=== PATIENT | female | born 1950 | race Caucasian/White ===

== ENCOUNTER 2018-08-03 05:48 | Outpatient (CLI) | payer BC ==
[~2018-08-03] VITALS: Ht 170.2 cm; Wt 81.6 kg
[~2018-08-03 05:48] MED LIST: HYDR25TA4 PO; IBUP-1773 PO; NFNEB10T PO; ROSU10TA PO
[2018-08-03] MEDS ORDERED: NEBI20TA2 PO (14:32)
[2018-08-03] MEDS ORDERED: ALLO100T PO (14:32)
[2018-08-03] MEDS ORDERED: AMLO5TAB4 PO (14:32)
== END 2018-08-03 14:36 | disposition home or self-care (01) ==
LOC: PREOP 05:48
PROVIDERS: ATTEND Obstetrics & Gynecology
DX: Z01.818 Encounter for other preprocedural examination (principal)

== ENCOUNTER 2018-08-06 07:41 | Day surgery (SDC) | payer MEDICARE, OTHER ==
[~2018-08-06] VITALS: Ht 170.2 cm; Wt 81.6 kg
[~2018-08-06 07:41] MED LIST changes: +ALLO100T PO; +AMLO5TAB4 PO; +NEBI20TA2 PO
[2018-08-06] MEDS ORDERED: BUPIVACAINE 0.25% 30 ML (SENSORCAINE) VIAL ONE (07:44)
[2018-08-06 07:50] VITALS: BP 167/103
[2018-08-06] MEDS ORDERED: LACTATED RINGERS 1,000 ML IV ONE (07:52)
[2018-08-06] MEDS ORDERED: fentaNYL INJECTION 100 MCG/2 ML AMP ONE (07:53)
[2018-08-06] MEDS ORDERED: MIDAZOLAM 2 MG/2 ML (VERSED) VIAL ONE (07:53)
[2018-08-06] MEDS ORDERED: SEVOFLURANE (ULTANE) 15 ML INHAL SOLN ONE ×3 (07:54→09:24)
[2018-08-06] MEDS ORDERED: ROCURONIUM 10 MG/ML 5 ML SYRINGE IV ONE (07:54)
[2018-08-06] MEDS ORDERED: proPOfol 200 MG/20 ML (DIPRIVAN) VIAL IV ONE (07:54)
[2018-08-06] MEDS ORDERED: ONDANSETRON 4 MG/2 ML (SDV) Z0FRAN ONE (07:54)
[2018-08-06] MEDS ORDERED: DEXAMETHASONE 10 MG/ML (DECADRON) 1 ML VIAL ONE (07:54)
[2018-08-06] MEDS ORDERED: LIDOCAINE PF 2% 5 ML (XYLOCAINE) VIAL ONE (07:54)
[2018-08-06] MEDS ORDERED: ceFAZolin INJECTION 1,000 MG in NS (IVPB) 50 ML IV ONE (08:00)
[2018-08-06] MEDS ORDERED: metroNIDAZOLE 500MG/100ML IVPB 100 ML IV ONE (08:00)
[2018-08-06] MEDS: LACTATED RINGERS 1,000 ML IV PRN ×3 (08:12→13:45)
[2018-08-06 08:20] LABS: BASOPHILS # (AUTO) 0.1 10^3/uL (0.0-0.1); BASOPHILS % (AUTO) 1 % (0-10); EOSINOPHILS # (AUTO) 0.1 10^3/uL (0.0-0.3); EOSINOPHILS % (AUTO) 1 % (0-10); HEMATOCRIT 48 % (35-52); HEMOGLOBIN 16.2 G/DL (11.5-16.0); LYMPHOCYTES # (AUTO) 2.4 X 10^3 (1.0-4.0); LYMPHOCYTES % (AUTO) 29 % (12-44); MEAN CORPUSCULAR HEMOGLOBIN 29 PG (25-34); MEAN CORPUSCULAR HGB CONC 34 G/DL (32-36); MEAN CORPUSCULAR VOLUME 86 FL (80-99); MEAN PLATELET VOLUME 12.6 FL (7.4-10.4); MONOCYTES % (AUTO) 12 % (0-12); NEUTROPHILS # (AUTO) 4.6 X 10^3 (1.8-7.8); NEUTROPHILS % (AUTO) 57 % (42-75); PLATELET COUNT 214 10^3/uL (130-400); RED CELL DISTRIBUTION WIDTH 14.1 % (10.0-14.5); WHITE BLOOD COUNT 8.1 10^3/uL (4.3-11.0)
[2018-08-06] MEDS ORDERED: LACTATED RINGERS 1,000 ML IV SCH (08:25)
--- NOTE | 2018-08-06 08:25 | Progress Note-Pre Operative ---
Pre-Operative Progress Note H&P Reviewed The H&P was reviewed, patient examined and no changes noted. Date Seen by Provider: Aug 06, 2018 Time Seen by Provider: 08:10 Date H&P Reviewed: Aug 06, 2018 Time H&P Reviewed: 08:00 Pre-Operative Diagnosis: POP, PMB, Fibroid uterus GLENN ROGER DO Aug 06, 2018 08:25
--- NOTE | 2018-08-06 08:27 | Discharge Inst-Women's Service ---
Discharge Inst-Women's Serv Depart Medication/Instructions New, Converted or Re-Newed RX: RX on Chart Consults/Follow Up Additional Follow Up: Yes Orders/Referrals Dr. Mart in 7-10 days and in 8 weeks Activity Activity: Activity as Tolerated Driving Instructions: No Driving for 1 Week NO SMOKING: NO SMOKING Nothing Inside Vagina: No Douching, No [place], No Tampons Diet Discharge Diet: No Restrictions Symptoms to Report to : Bleeding Excessive, Pain Increased, Fever Over 101 Degrees F, Vaginal Bleeding Increase, Questions/Concerns For Any Problems or Questions: Contact Your Physician Skin/Wound Care Infection Signs and Symptoms: Increased Redness, Foul Odor of Wound, Increased Drainage, Skin Itchy or Has a Rash, Increased Swelling, Temperature Above 101 F Operative Area Clean and Dry: Keep Incision Clean/Dry Stitches/All/Dermabond: Dermabond, Care of Stitches Bathing Instructions: GLENN Sher DO Aug 06, 2018 08:27
[2018-08-06] MEDS ORDERED: HYDR-34 PO (08:29)
[2018-08-06] MEDS ORDERED: IBUP-844 PO (08:29)
[2018-08-06] MEDS ORDERED: SIME80TA16 PO (08:29)
[2018-08-06] MEDS ORDERED: DOCU100C37 PO (08:29)
[2018-08-06] MEDS ORDERED: KETOROLAC 30 MG/ML VIAL IV PRN (08:30)
[2018-08-06] MEDS ORDERED: ZOLPIDEM 5 MG (AMBIEN) TAB PO PRN (08:30)
[2018-08-06] MEDS ORDERED: HYDROcodone/APAP 7.5 MG/325 MG (LORTAB, LORCET PLUS) TABLET PO PRN (08:30)
[2018-08-06] MEDS ORDERED: SIMETHICONE 80 MG (MYLICON) CHEW PO PRN (08:30)
[2018-08-06] MEDS ORDERED: ANTACID SUSP 30 ML UDC (MYLANTA) PO PRN (08:30)
[2018-08-06] MEDS ORDERED: ONDANSETRON 4 MG/2 ML (SDV) Z0FRAN IV PRN (08:30)
[2018-08-06] MEDS ORDERED: NEOSTIGMINE 1 MG/ML 5 ML SYRINGE ONE (09:06)
[2018-08-06] MEDS ORDERED: GLYCOPYRROLATE 0.2 MG/ML (ROBINUL) 2 ML VIAL ONE (09:06)
[2018-08-06] MEDS ORDERED: KETOROLAC 30 MG/ML VIAL ONE (09:53)
[2018-08-06] MEDS ORDERED: morphine INJ 10 MG/ML 1ML (SYR OR VIAL) ONE (09:53)
[2018-08-06] MEDS ORDERED: morphine INJ 10 MG/ML 1ML (SYR OR VIAL) IVP ONE (10:30)
[2018-08-06] MEDS ORDERED: ONDANSETRON 4 MG/2 ML (SDV) Z0FRAN IVP PRN (10:30)
[2018-08-06 10:45] VITALS: BP 169/77
--- NOTE | 2018-08-06 10:45 | NUR ---
pt transferred to room 305 via bed with PACU staff @ side. report received from ALEX Garcia. care assumed of pt. vs taken.
--- NOTE | 2018-08-06 11:00 | NUR ---
initial shift assessment completed, see interventions for further. lap-sites x3, D/I, covered with band-aids. barber to DD with clear, yellow urine noted in chamber. SCD's to LE's. IV site patent. IV tubing changed, LR @ 125cc/hr infusing via IV pump. pt drowsy, resting @ intervals. @ side.
[2018-08-06] MEDS: CHLORASEPTIC LOZENGE MM PRN ×2 (13:12→21:00)
--- NOTE | 2018-08-06 13:29 | OPERATIVE REPORT ---
DATE OF SERVICE: PREOPERATIVE DIAGNOSES: 1. A 67-year-old female with pelvic organ prolapse. 2. Postmenopausal bleeding. 3. Fibroid uterus. POSTOPERATIVE DIAGNOSES: 1. A 67-year-old female with pelvic organ prolapse. 2. Postmenopausal bleeding. 3. Fibroid uterus. PROCEDURE: Robotic-assisted total laparoscopic hysterectomy with bilateral salpingo-oophorectomy. SURGEON: Oj Mart DO INSTRUCTOR EXTENSION WORK: GLENDA Taylor ANESTHESIA: General endotracheal. ESTIMATED BLOOD LOSS: Minimal. URINE OUTPUT: 100 mL, clear at the end of the procedure. FLUIDS: 1200 mL of lactated Ringer's solution. FINDINGS: A slightly enlarged uterus approximately 8 to 10 week size, grossly normal appearing bilateral fallopian tubes and ovaries with adhesions of the left ovary to the descending sigmoid colon. SPECIMEN SENT: Uterus, bilateral fallopian tubes and ovaries. INDICATIONS FOR PROCEDURE: This 67-year-old female who is patient I had seen in my office again for an episode of postmenopausal bleeding, while we had previously evaluated her for this and done endometrial sampling which had been benign in the past; however, it has been greater than a year and a half since I had previously seen her and therefore repeat endometrial evaluation was necessary. We went ahead and did an endometrial biopsy in the office; however, the patient was also complaining of some prolapse symptoms and pelvic pressure symptoms. We discussed proceeding with hysterectomy pending a normal benign endometrial biopsy. Risks of procedure were discussed with the patient in detail including risks of bleeding, infection, damage to surrounding structures including, but not limited to bowel, bladder, ureter, kidneys, possible need for reoperation, postoperative complications that could occur, recovery time frame. We have discussed the risk from anesthesia and even . After everything was discussed with the patient in detail, consent was obtained in the preoperative area. After all of her questions were answered, the patient was taken to the operating room. OPERATIVE REPORT IN DETAIL: Once in the operating room, general anesthesia was found to be adequate. She was placed in dorsal lithotomy position, prepped and draped in normal sterile fashion. A Sharma catheter was placed using sterile technique. After a timeout was performed, a weighted speculum was inserted to the patient's vagina. The cervix is present at the introitus and therefore a 0 Vicryl suture was placed in the anterior lip of the cervix as the retraction point. I then sound the uterine cavity depth, was found to be 8 cm. I then gently dilated the cervix using Hegar dilators to maximum dilatation of approximately 4 to 5 mm, which allows me to place a Deirdre uterine manipulator. I selected an 8 cm Deirdre uterine manipulator tip and a 3.5 cm colpotomy ring and placed it into the uterus, deploying the balloon and advancing the colpotomy ring around the vaginal fornix. Once this was in place, I am able to appreciate bimanual examination. I then performed a change of gloves and took my attention to the abdomen where infraumbilically I infiltrated this area using 0.25% Marcaine. I make an 8 mm incision and directed a Veress needle through the incision until intraperitoneal placement confirmed using saline drop test. I then proceeded with insufflation using CO2 gas. The opening pressure of 4 mmHg was noted. I proceeded to maximum pressure of 15 mmHg, at which point I removed the Veress needle and introduced an 8 mm blunt da Fany camera trocar. Once this was in place, I am able to confirm intraperitoneal placement using the da Fany laparoscope. The patient placed in steep Trendelenburg after a brief scan of the upper abdominal anatomy shows no gross abnormalities and no evidence of damage upon entry. Once in steep Trendelenburg, I am able to visualize all my findings as listed above. I placed two lateral trocars approximately 8 cm lateral to my infraumbilical trocar. These were both 8 mm incisions. The incisions are made with a knife after the skin was infiltrated using 0.25% Marcaine and the trocars were placed under direct visualization of the laparoscope. Once these were in place, I bring in the da Fany robot and docked in the appropriate fashion placing the vessel sealer in the left hand, the monopolar adan in the right hand. I first take down the filmy adhesions of the descending sigmoid colon from the left adnexa. Once these were taken down, I am able to perform the following dissection bilaterally. Starting at the infundibulopelvic ligament, bipolar cautery was then transected using the vessel sealer. During this process, I keep an eye on the ureter and staying clear of it during my dissection. I then grasped the round ligament, bipolar cauterized and transected using vessel sealer. I then am able to grasp the entire broad ligament, bipolar cauterized and transected using the vessel sealer. I the posterior and anterior leaflets of the broad ligament. The anterior leaflet dissection was taken around to the anterior vaginal fornix. The posterior leaflet was taken around to the posterior vaginal fornix. This allows me to skeletonize the uterine vessels laterally and allows the ureter to fall lateral of my dissection plane. I then grasped the uterine vessels, bipolar cauterized and transected using the vessel sealer. I then performed a colpotomy at 12 o'clock position and took this circumferentially using monopolar adan amputating the cervix away from the vaginal fornix. Once this was done, I am able to remove the entire specimen through the vagina. The lateral vaginal apices are then reapproximated using 2-0 Vicryl suture in a [id number] fashion colposuspending them to the uterosacral ligaments. I then closed the remainder of the vaginal cuff using 2-0 V-Loc in a running fashion, after which there was no active bleeding noted from any of my dissection planes. I then undocked the da Fany robot and proceeded with the remainder of the case laparoscopically. I copiously irrigated the pelvis using normal saline. Once again, there was no active bleeding noted from any of my dissection planes. I placed FloSeal hemostatic agent over all my planes of dissection to ensure excellent postoperative hemostasis. I then had the patient taken out of steep Trendelenburg after I removed the lateral trocars under direct visualization of the laparoscope. The infraumbilical trocar was left in place to introduce 10 mL of 0.25% Marcaine for postoperative pain management and to release all the insufflation that I can. I then removed this trocar as well. The skin was then reapproximated using 4-0 Monocryl in interrupted subcuticular stitches. Dermabond applied to the incision and Band-Aids were placed over these. Sharma catheter was left in place. The patient tolerated the procedure well and sent to the recovery area in stable condition. Lap and sponge counts correct at the end of the procedure. Instrument count was correct as well. Two grams of Ancef and 500 mg of Flagyl were given preoperatively for infection prophylaxis. Job ID: [id number] DocumentID: [id number] Dictated Date: 08/06/2018 10:10:00 Hop Farmer Date: 08/06/2018 13:27:56 Dictated By: DO DEVON ARAGON
--- NOTE | 2018-08-06 13:45 | NUR ---
barber catheter dc'd per Dr's orders. 950cc urine noted. elroy-care offered. v-pad in place.
--- NOTE | 2018-08-06 16:30 | NUR ---
assiste up to BR x2. tolerated well. voided 150cc urine. elroy-care offered. no vaginal bleeding noted. pt requested no v-pad on.
[2018-08-06 18:06] VITALS: BP 140/72
--- NOTE | 2018-08-06 19:40 | NUR ---
report given to Irena RN
[2018-08-06] MEDS ORDERED: ACETAMINOPHEN 500 MG TAB (TYLENOL) PO ONE (20:45)
[2018-08-06] MEDS: DOCUSATE SODIUM 100 MG (COLACE) CAP PO PRN (21:03)
[2018-08-06 22:00] VITALS: BP 129/60
[2018-08-07] MEDS ORDERED: IBUPROFEN 600 MG (MOTRIN) TAB PO PRN (01:15)
[2018-08-07 01:52] VITALS: BP 116/58
[2018-08-07] MEDS ORDERED: ACETAMINOPHEN 500 MG TAB (TYLENOL) ONE (02:01)
[2018-08-07] MEDS: ACETAMINOPHEN 500 MG TAB (TYLENOL) PO PRN ×2 (02:07→09:05)
[2018-08-07] MEDS: CHLORASEPTIC LOZENGE MM PRN (02:07)
[2018-08-07 06:15] VITALS: BP 112/63
--- NOTE | 2018-08-07 06:15 | NUR ---
IV removed. Pt. tolerated well. No concerns at this time.
--- NOTE | 2018-08-07 07:00 | NUR ---
REPORT RECEIVED FROM [facility] A[facility]
--- NOTE | 2018-08-07 07:03 | Anesthesia-General Post-Op ---
General Patient Condition Mental Status/LOC: Same as Preop Cardiovascular: Satisfactory Nausea/Vomiting: Absent Respiratory: Satisfactory Pain: Controlled Complications: Absent Post Op Complications Complications None Follow Up Care/Instructions Patient Instructions None needed. Anesthesia/Patient Condition Patient Condition Patient is doing well, no complaints, stable vital signs, no apparent adverse anesthesia problems. No complications reported per nursing. GLYNN ZHONG CRNA Aug 07, 2018 07:03
--- NOTE | 2018-08-07 08:15 | NUR ---
DR ROGER HERE NEW ORDERS RECEIVED.
--- NOTE | 2018-08-07 08:30 | NUR ---
RT CALLED ABOUT IS ORDER.
[2018-08-07 08:55] VITALS: BP 142/78
[2018-08-07] MEDS: DOCUSATE SODIUM 100 MG (COLACE) CAP PO PRN (09:04)
--- NOTE | 2018-08-07 09:15 | NUR ---
INITIAL ASSESSMENT COMPLETED, VSS, SEE INTERVENTIONS FOR DETAILED ASSESSMENTS.
--- NOTE | 2018-08-07 09:25 | NUR ---
RT HERE, DISCHARGE INSTRUCTIONS EXPLAINED, SIGNED, PT VERBALIZES UNDERSTANDING OF FOLLOW UP CARE AND INSTRUCTIONS NO QUESTIONS OR CONCERNS NOTED.
--- NOTE | 2018-08-07 09:40 | NUR ---
PT DISCHARGED TO HOME, AMBULATED TO PRIVATE CAR PER PTS REQUEST WITH STAFF AND PTS S/O AT SIDE, NO DISTRESS NOTED.
== END 2018-08-07 09:40 | disposition home or self-care (01) ==
LOC: SDC 07:41 → WS 10:45 → SDC 08-07 09:40
PROVIDERS: ATTEND Obstetrics & Gynecology
DX: C54.1 Malignant neoplasm of endometrium (principal); N80.0 Endometriosis of uterus; D25.0 Submucous leiomyoma of uterus; N95.0 Postmenopausal bleeding; N81.11 Cystocele, midline; I10 Essential (primary) hypertension; Z79.82 Long term (current) use of aspirin; Z79.899 Other long term (current) drug therapy
CPT/HCPCS: 36415; 85025; 86850; 86900; 86901; 87081; 94664

== ENCOUNTER 2021-11-12 05:33 | Outpatient (CLI) | payer MEDICARE, OTHER ==
[~2021-11-12] VITALS: Ht 170.2 cm; Wt 75.0 kg
[~2021-11-12 05:33] MED LIST changes: +DOCU100C37 PO; +HYDR-34 PO; +IBUP-844 PO; -ROSU10TA PO; +ROSU10TA22 PO; +SIME80TA16 PO
[2021-11-13] MEDS ORDERED: DOXA2TAB PO (15:09)
[2021-11-13] MEDS ORDERED: TELM80TA8 PO (15:09)
== END 2021-11-14 16:53 ==
LOC: PREOP 05:33
PROVIDERS: ATTEND Specialist
DX: Z01.818 Encounter for other preprocedural examination (principal)

== ENCOUNTER 2021-11-19 06:09 | Day surgery (SDC) | payer MEDICARE, OTHER ==
[~2021-11-19] VITALS: Ht 170 cm; Wt 75.0 kg
[~2021-11-19 06:09] MED LIST changes: +DOXA2TAB PO; +TELM80TA8 PO
[2021-11-19] MEDS ORDERED: TIMOLOL MALEATE 0.5% 5 ML (TIMOPTIC) BTL OU PRN (06:30)
[2021-11-19] MEDS ORDERED: LIDOCAINE PF 1% 2 ML VIAL IR PRN (06:30)
[2021-11-19] MEDS ORDERED: MOXIFLOXACIN OPHTH SOLN 5 MG/ML 0.3 ML SYRINGE OP ONE (06:30)
[2021-11-19] MEDS ORDERED: POVIDONE (BETADINE) OPHTH SOLN 5% 30 ML OP ONE (06:30)
[2021-11-19 06:33] VITALS: BP_SYST 142; BP_SYST 158; BP_DIAS 73; BP_DIAS 81
[2021-11-19] MEDS ORDERED: MIDAZOLAM 2 MG/2 ML (VERSED) VIAL ONE (06:43)
[2021-11-19] MEDS: TETRACAINE 0.5% OPHTH SOLN 4 ML BTL (SINGLE DOSE ONLY) OU PRN ×4 (07:14→07:26)
[2021-11-19] MEDS: TROPICAMIDE 1% OPH SOLN (MYDRIACYL) 15 ML BTL OP SCH ×3 (07:20→07:27)
[2021-11-19] MEDS: PHENYLEPHRINE 10% OPHTH (NEO-SYN) 5 ML BTL OU SCH ×3 (07:20→07:27)
--- NOTE | 2021-11-19 07:21 | Ophthalmologist Pre-Op Note ---
Pre-Operative Progress Note H&P Reviewed The H&P was reviewed, patient examined and no changes noted. Date H&P Reviewed: November 19, 2021 Time H&P Reviewed: 07:21 Pre-Op Dx Cataract, Right Eye JEAN ESPINAL MD November 19, 2021 07:21
--- NOTE | 2021-11-19 07:54 | Ophthalmology Operative Report ---
Cataract removal/placement IOL PREOPERATIVE DIAGNOSIS: Cataract Right Eye POSTOPERATIVE DIAGNOSIS: Cataract Right Eye PROCEDURE: Cataract removal and placement of posterior chamber implant, right eye SURGEON: Anthony Espinal ANESTHESIA: Topical with sedation COMPLICATIONS: None ESTIMATED BLOOD LOSS: Minimal DESCRIPTION OF PROCEDURE: After proper informed consent was obtained, the patient, a 71 female, was taken to the Operating Room and the right eye was anesthetized with tetracaine. The right eye was then prepped and draped in the usual manner. A wire lid speculum was placed. A paracentesis was made at the left hand position. Preservative free lidocaine was injected into the anterior chamber followed by viscoelastic. A clear corneal incision was made in the temporal position. A capsulorrhexis was preformed and the central nuclear and cortical material were removed. The posterior capsule was polished and Michael 23.0 AU00T0 IOL was placed into the capsular bag. The residual viscoelastic was aspirated and balanced saline solution was injected into the anterior chamber. Moxifloxacin was injected into the anterior chamber. The wound was checked and found to be water tight. The patient tolerated the procedure well without complications. ANTHONY ESPINAL MD November 19, 2021 07:54
[2021-11-19] MEDS ORDERED: acetaZOLAMIDE ER 500 MG CAP (DIAMOX SEQUELS) PO ONE ×2 (08:27→09:00)
--- NOTE | 2021-11-19 13:35 | Anesthesia-General Post-Op ---
MAC Patient Condition Mental Status/LOC: Same as Preop Cardiovascular: Satisfactory Nausea/Vomiting: Absent Respiratory: Satisfactory Pain: Controlled Complications: Absent Post Op Complications Complications None Follow Up Care/Instructions Patient Instructions None needed. Anesthesiology Discharge Order Discharge Order Patient is doing well, no complaints, stable vital signs, no apparent adverse anesthesia problems. No complications reported per nursing. GLYNN ZHONG CRNA November 19, 2021 13:35
== END 2021-11-19 07:59 | disposition home or self-care (01) ==
LOC: SDC 06:09
PROVIDERS: ATTEND Specialist
DX: H25.9 Unspecified age-related cataract (principal); Z79.82 Long term (current) use of aspirin
CPT/HCPCS: 66984; V2632